=== PATIENT | female | born 2000 | race Caucasian/White ===

== ENCOUNTER 2021-08-19 09:24 | Emergency (ER) | payer MEDICAID, SELFPAY ==
[2021-08-19 09:25] VITALS: BP 122/93; PULSE 90; RESP 18; TEMP 36.6; O2SAT 96; BMI 28.0
[2021-08-19 09:31] VITALS: BP 122/93; PULSE 90; RESP 18; TEMP 36.6; O2SAT 96
--- NOTE | 2021-08-19 09:37 | EDS_ITS ---
HPI <LAQUITA Orta - Last Filed: 08/19/21 10:23> History of Present Illness Chief Complaint: Cough Narrative Narrative: 21-year-old female presents with persistent cough. Over the last 4 days she has had fever, chills, body aches, and productive cough. Sometimes she coughs so much that she vomits. She denies chest pain or shortness of breath. 2 days ago she was seen in urgent care and had negative COVID and influenza testing. They did a chest x-ray and diagnosed her with pneumonia. They prescribed doxycycline, prednisone, albuterol inhaler, and Tessalon Perles. She has no history of asthma or respiratory disease. Patient states her cough has not improved and she has been very tired and lying in bed and urgent care told her she should be feeling better by today and could return to work. PFSH <LAQUITA Orta - Last Filed: 08/19/21 10:23> PFSH Home Medications drospirenone-ethinyl estradiol [Susan 28 Tablet] 1 ea PO DAILY 04/05/17 [History Last Taken 04/05/17] hydrocodone-acetaminophen 1 - 2 tab PO Q4H PRN PRN #8 tab 04/05/17 [Rx Last Taken Unknown] sertraline [Zoloft] 25 mg PO DAILY 04/05/17 [History Last Taken 04/05/17] codeine-guaifenesin [Guaifenesin AC] 5 ml PO Q6H PRN #118 ml 08/19/21 [Rx Last Taken Unknown] Allergy/AdvReac Type Severity Reaction Status Date / Time No Known Allergies Allergy Verified 08/19/21 09:27 Social History Smoking Status: Never smoker ROS <LAQUITA Orta - Last Filed: 08/19/21 10:23> ROS ED ROS Narrative Constitutional: Positive for fever, chills, malaise. Eyes: Negative for visual change. ENT: Negative for sore throat, ear pain, rhinorrhea. CVS: Negative for palpitations, chest pain, syncope. Respiratory: Positive for cough. Negative for shortness of breath, orthopnea. GI: Negative for abdominal pain, nausea, vomiting, diarrhea, constipation, melena, hematochezia. : Negative for dysuria, hematuria or frequency. Neuro: Negative for headache, motor/sensory dysfunction. Skin: Negative for rash, abscess, or wound. Musc: Positive for body aches. Negative for joint pain, swelling, trauma. Heme: Negative for easy bruising, bleeding, lymphadenopathy. EXAM <LAQUITA Orta - Last Filed: 08/19/21 10:23> Physical Exam Narrative Exam Narrative: CONST: Patient sitting in no acute distress. EYES: Normal inspection. ENT: Normal inspection, moist mucous membranes. NECK: Normal inspection. RESP: No respiratory distress, CTAB. CVS: Regular rate and rhythm, no murmur, no gallop. SKIN: Color normal, no rash, warm, dry, intact. EXTREMITIES: Normal appearance, no pedal edema. NEURO: Oriented x4. PSYCH: Normal affect. Const Vital Signs: 08/19/21 09:25 08/19/21 09:31 08/19/21 10:14 Temperature 98 F 98 F Temperature Source Temporal Temporal Pulse Rate 90 90 Respiratory Rate 18 18 Respiratory Effort Normal Non-Labored Blood Pressure 122/93 H 122/93 H Blood Pressure Mean 102 102 Pulse Ox 96 96 Oxygen Delivery Method Room Air Room Air Room Air 08/19/21 10:15 Temperature Temperature Source Pulse Rate 90 Respiratory Rate 18 Respiratory Effort Blood Pressure 122/93 H Blood Pressure Mean Pulse Ox Oxygen Delivery Method <Dr. Hilda Lizarraga DO - Last Filed: 08/22/21 22:59> Physical Exam Const Vital Signs: 08/19/21 09:25 08/19/21 09:31 08/19/21 10:14 Temperature 98 F 98 F Temperature Source Temporal Temporal Pulse Rate 90 90 Respiratory Rate 18 18 Respiratory Effort Normal Non-Labored Blood Pressure 122/93 H 122/93 H Blood Pressure Mean 102 102 Pulse Ox 96 96 Oxygen Delivery Method Room Air Room Air Room Air 08/19/21 10:15 Temperature Temperature Source Pulse Rate 90 Respiratory Rate 18 Respiratory Effort Blood Pressure 122/93 H Blood Pressure Mean Pulse Ox Oxygen Delivery Method MDM <LAQUITA Orta - Last Filed: 08/19/21 10:23> [facility] Narrative Medical decision making narrative: Patient presents with 5-day course of fever, malaise, and cough. She is currently taking doxycycline and prednisone from an urgent care. She appears well nontoxic. Afebrile and vital signs within normal limits. Her medical exam is benign. I cannot see the outside x-ray so a chest x-ray was obtained here and shows a right lower lobe infiltrate. He has only completed 2 doses of doxycycline thus far. She has no signs of respiratory distress. She will be given a work note for few days additional off work and prescribed Robitussin-AC to take in addition to her medications. Patient and family were counseled on return precautions and she was discharged in stable condition. Diagnosis 1. Cough 2. Community acquired pneumonia Radiography Diagnostic Testing: Clinical Impression(s) from Imaging Studies Chest X-Ray 08/19/21 09:50 IMPRESSION: There is a focal infiltrate in the posterior medial segment of the right lower lobe. Electronically Signed: Myles Epperson MD at 10:19 EDT , ED attending interpretation of 1 view chest shows normal heart size, focal right lower lobe infiltrate. <Dr. Hilda Lizarraga, DO - Last Filed: 08/22/21 22:59> [facility] Narrative Medical decision making narrative: I have personally performed a face to face assessment of the patient and have reviewed the ANNIE Note. I performed a substantive portion of the visit including all aspects of the following. My johnson findings include: History is patient is a 21-year-old female with no significant past medical history presenting with continued cough and generalized malaise. She is been on a little bit over 24 hours of doxycycline and does not feel improved. She does not feel she can return to work. She came in for repeat evaluation. Physical exam is benign. Patient is stable vital signs. She not hypoxic. She is normal breath sounds throughout. No respiratory distress or retractions appreciated. She does not appear dehydrated. No significant coughing on my evaluation. Chest x-ray is obtained which does show right lower lobe infiltrate. Patient counseled that she likely just needs more time for the medications to work. Given her lack of hypoxia, difficulty breathing or severe symptoms I do not think she requires blood work or admission at this time. Is given return precautions. Is encouraged to continue her medications including doxycycline and prednisone but also prescribed Tessalon AC to better help with her cough and sleep. Patient and mother verbalized agreement understand this plan. Other additions or changes: [None] Radiography Chest X-Ray - ED: 1 View, Read by ED Physician, Read by Radiologist and Right Infiltrate Diagnostic Testing: Clinical Impression(s) from Imaging Studies Chest X-Ray 08/19/21 09:50 IMPRESSION: There is a focal infiltrate in the posterior medial segment of the right lower lobe. Electronically Signed: Myles Epperson MD at 10:19 EDT , Discharge Plan Triage Chief Complaint: Cough ED Midlevel Provider: Alka Fuller ED Provider: Hilda Lizarraga Dx/Rx/DC Orders Clinical Impression: RLL pneumonia, Cough Instructions: Treating Pneumonia Prescriptions: New codeine-guaifenesin [Guaifenesin AC] 10-100 mg/5 mL liquid 5 ml PO Q6H PRN (Reason: cough) Qty: 118 RF: 0 No Action sertraline [Zoloft] 25 MG tablet 25 mg PO DAILY RF: 0 drospirenone-ethinyl estradiol [SUSAN (28)] 1 EACH tablet 1 ea PO DAILY RF: 0 hydrocodone-acetaminophen 1 TABLET tablet 1 - 2 tab PO Q4H PRN PRN (Reason: Pain) Qty: 8 RF: 0 Stand Alone Forms: ED Work / School Excuse Primary Care Provider: Sol Kohler Referrals: Sol Kohler MD [Primary Care Provider] - Activity Restrictions/Additional Instructions: Continue your medications and I prescribed a cough syrup. Follow up with your PCP. Disposition Disposition: Home, Self Care Discharge Date/Time: 08/19/21 10:25
--- NOTE | 2021-08-19 09:50 | RAD_ITS ---
STUDY: X-RAY CHEST REASON FOR EXAM: Female, 21 years old. One-week history of cough and fever. TECHNIQUE: Single AP portable view of the chest. COMPARISON: None. FINDINGS: Focal infiltrate in the posterior medial segment of the right lower lobe. There is no demonstrated pleural abnormality. Normal size heart. Normal mediastinum and leslie. Normal visualized pulmonary arteries. Normal visualized aortic arch and descending thoracic aorta. Normal visualized thoracic spine. Normal visualized ribs, clavicles, and shoulders. There is no demonstrated abnormality of the visualized soft tissue structures of the upper abdomen. RAD/Chest 1 View (Portable) IMPRESSION: There is a focal infiltrate in the posterior medial segment of the right lower lobe. Electronically Signed: Myles Epperson MD at 10:19 EDT ,
[2021-08-19 10:15] VITALS: BP 122/93; PULSE 90; RESP 18
== END 2021-08-19 10:25 | disposition home or self-care (01) ==
PROVIDERS: Emergency Provider Emergency Medicine; PCP Pediatrics; Visit Provider Emergency Medicine
DX: J18.9 Pneumonia, unspecified organism (principal); R05.9 Cough, unspecified; R53.81 Other malaise
CPT/HCPCS: 71045; 99282

== ENCOUNTER → 2023-06-22 | Outpatient (CLI) | payer MEDICAID, SELFPAY ==
[2023-06-26 12:09] LABS: QNTFERON TB Mitogen Value > 10.00 IU/mL (.); QNTFERON TB Nil Value 0.03 IU/mL (.); QNTFERON TB1+ Ag Value 0.01 IU/mL (.); QNTFERON TB2+ Ag Value 0 IU/mL (.); QNTIFERON TB Positive Criteria Negative (Negative)
== END | disposition home or self-care (01) ==
LOC: MTLAB 09:40
PROVIDERS: PCP Family Medicine; Referring Provider Family Medicine; Visit Provider Family Medicine
DX: Z23 Encounter for immunization (principal)
CPT/HCPCS: 86480